=== PATIENT | female | born 1975 | race Caucasian/White ===

== ENCOUNTER 2025-04-24 08:21 | Emergency (ER) | payer SELFPAY ==
[~2025-04-24] VITALS: Ht 167.6 cm; Wt 91.0 kg
[2025-04-24 08:40] VITALS: BP 133/70; PULSE 60; RESP 16; TEMP 97.8; O2SAT 98
[2025-04-24 09:21] LABS: APPEARANCE,URINE CLEAR (CLEAR); GLUCOSE, URINE (UA) NEGATIVE (NEGATIVE); LEUKOCYTE ESTERASE ,URINE NEGATIVE (NEGATIVE); NITRATE,URINE NEGATIVE (NEGATIVE); OCCULT BLOOD,URINE NEGATIVE (NEGATIVE); SPECIFIC GRAVITIY, URINE 1.019 (1.003-1.030)
[2025-04-24] MEDS: KETOROLAC TROMETHAMINE 30 MG/ML VIAL IM ONE (10:07)
[2025-04-24] MEDS: ACETAMINOPHEN 500 MG TABLET PO ONE (10:08)
[2025-04-24] MEDS: LIDOCAINE 5% TRANSDERMAL PATCH TD ONE (10:08)
[2025-04-24] MEDS ORDERED: ACET-3385 PO (10:16)
[2025-04-24] MEDS ORDERED: LIDO-57 TP (10:16)
[2025-04-24] MEDS ORDERED: IBUP-1492 PO (10:16)
== END 2025-04-24 10:47 | disposition home or self-care (01) ==
LOC: EMS 08:30
DX: S39.012A Strain of muscle, fascia and tendon of lower back, initial encounter (principal); X58.XXXA Exposure to other specified factors, initial encounter; Y93.89 Activity, other specified; Y92.89 Other specified places as the place of occurrence of the external cause; Y99.8 Other external cause status
CPT/HCPCS: 99283; 81003; 84703; 96372; J1885